=== PATIENT | female | born 1950 | race Caucasian/White ===

== ENCOUNTER 2018-09-22 04:13 | Emergency (ER) | payer OTHER, BC ==
[~2018-09-22] VITALS: Ht 167.6 cm; Wt 68.0 kg
[2018-09-22 05:59] VITALS: BP 163/76
== END 2018-09-22 05:59 | disposition home or self-care (01) ==
LOC: ER 04:13
DX: S01.01XA Laceration without foreign body of scalp, initial encounter (principal); F17.210 Nicotine dependence, cigarettes, uncomplicated; W03.XXXA Other fall on same level due to collision with another person, initial encounter; Y93.89 Activity, other specified; Y92.89 Other specified places as the place of occurrence of the external cause; Y99.8 Other external cause status